=== PATIENT | female | born 1990 | race Caucasian/White ===

== ENCOUNTER 2019-02-20 18:23 | Emergency (ER) | payer BC ==
[~2019-02-20] VITALS: Ht 167.6 cm; Wt 79.4 kg
[2019-02-20 18:35] VITALS: BP_SYST 131
--- NOTE | 2019-02-20 19:42 | NUR ---
Patient to ER bed VAS[facility] 1 to gown for evaluation. Side rails up. Report given to [place] ULLOA.
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
--- NOTE | 2019-02-20 21:29 | NUR ---
ER Dr. Carpio at bedside examining patient.
[2019-02-20] MEDS ORDERED: KETOROLAC TROMETHAMINE 60 MG/2 ML VIAL IM ONE (21:30)
--- NOTE | 2019-02-20 22:40 | NUR ---
Patient given IM toradol for pain relief of 7/10 pain. Upon speaking with the patient, patient has unequal pupils: R: 5mm; L 3mm. MD made aware, he will see patient.
[2019-02-20 23:55] VITALS: BP_SYST 122
--- NOTE | 2019-02-20 23:55 | NUR ---
Patient given written and verbal discharge instructions and verbalizes understanding. ER MD discussed with patient the results and treatment provided. Patient in stable condition. ID arm band removed. Rx of Naprosyn and Flexeril given. Patient educated on pain management and to follow up with PMD. Pain Scale 0/10 Opportunity for questions provided and answered. Medication side effect fact sheet provided.
--- NOTE | 2019-02-20 23:55 | NUR ---
Note zeinab in EDM - 02/21/19 at 0053 by [email or web address] dis Patient given written and verbal discharge instructions and verbalizes understanding. ER discussed with patient the results and treatment provided. Patient in stable condition. ID arm band removed. Rx of Naprosyn and Flexeril given. Patient educated on pain management and to follow up with PMD. Pain Scale 0/10 Opportunity for questions provided and answered. Medication side effect fact sheet provided.
== END 2019-02-20 23:55 | disposition home or self-care (01) ==
LOC: SED 18:23
DX: S33.5XXA Sprain of ligaments of lumbar spine, initial encounter (principal); S23.9XXA Sprain of unspecified parts of thorax, initial encounter; Z91.048 Other nonmedicinal substance allergy status; V43.52XA Car driver injured in collision with other type car in traffic accident, initial encounter; Y93.89 Activity, other specified; Y92.410 Unspecified street and highway as the place of occurrence of the external cause; Y99.8 Other external cause status
CPT/HCPCS: 71045; 71100; 72100; 72220; 93005; 96372; 99283; J1885